=== PATIENT | male | born 1990 | race Caucasian/White ===

== ENCOUNTER 2021-10-24 10:30 | Emergency (ER) | payer OTHER, SELFPAY ==
[2021-10-24 10:42] VITALS: BP 141/83; PULSE 70; RESP 14; TEMP 36.3; O2SAT 95; BMI 36.9
--- NOTE | 2021-10-24 10:47 | DI.RAD.S_ITS ---
PROCEDURE: XR KNEE RT 3V INDICATIONS: knee pain TECHNIQUE: 3 views of the knee were acquired. COMPARISON: None. FINDINGS: Bones: No fractures or dislocations. Slight lateral subluxation of patella is seen. No suspicious bony lesions. Soft tissues: Moderate suprapatellar joint effusion is seen. No suspicious soft tissue calcifications. IMPRESSION: No acute right knee fracture or dislocation. Slight lateral subluxation of patella. Moderate suprapatellar joint effusion. The Dictated by: Dalton Arriaga M.D. on 10/24/2021 at 11:05 Approved by: Dalton Arriaga M.D. on 10/24/2021 at 11:05
--- NOTE | 2021-10-24 12:24 | ED.LOWEXIN ---
HPI - Extremity Injury (Lower) <Donnell Amezcua PA-C - Last Filed: 10/24/21 12:33> General Chief Complaint: Extremity Injury, Lower Stated Complaint: Thinks torn something in knee Time Seen by Provider: 10/24/21 12:03 Source: patient Mode of arrival: Ambulatory History of Present Illness HPI Narrative: Patient is a 30-year-old male who presents to the ED complaining of right knee pain. He states that yesterday evening he was playing basketball and as he came down from a jump shot his knee bent inward he started having severe pain. He states that throughout the night and this morning his head no in improvement in his symptoms and has noticed swelling in his knee has increased. He has strained his knee in the past but no previous fracture and no recent surgery to his knee. The pain that he is describing is located on the medial side of the joint space. Related Data Previous Rx's Medication Instructions Recorded tramadol 50 mg tablet 50 mg PO Q6H PRN #30 tab 10/24/21 Allergies Allergy/AdvReac Type Severity Reaction Status Date / Time No Known Drug Allergies Allergy Verified 10/24/21 10:47 Review of Systems <Donnell Amezcua PA-C - Last Filed: 10/24/21 12:33> Review of Systems ROS Unobtainable: All systems reviewed & are unremarkable except as noted in HPI and below Constitutional Constitutional: Denies chills, Denies fatigue, Denies fever(s), Denies frequent falls, Denies lethargy and Denies weakness Eyes Eyes: Denies change in vision, Denies eye discharge, Denies irritation and Denies loss of vision ENT Ears, Nose, Mouth, and Throat: Denies change in voice, Denies dizziness, Denies neck pain, Denies sore throat and Denies throat swelling Cardiovascular Cardiovascular: Denies chest pain, Denies irregular heart rhythm, Denies lightheadedness, Denies palpitations, Denies dyspnea, Denies dyspnea on exertion and Denies orthopnea Respiratory Respiratory: Denies cough, Denies dyspnea, Denies dyspnea on exertion and Denies wheezing Gastrointestinal Gastrointestinal: Denies abdominal pain, Denies change in bowel habits, Denies diarrhea, Denies nausea and Denies vomiting Genitourinary Genitourinary: Denies hematuria, Denies flank pain, Denies urinary incontinence and Denies urinary urgency Musculoskeletal Musculoskeletal: Denies back pain, Reports arthralgias, Reports joint swelling, Reports limited range of motion, Denies muscle weakness, Denies neck pain, Denies numbness and Denies tingling Integumentary/Breasts Skin/Breast: Denies pruritus, Denies erythema, Denies rash and Denies wounds Neurologic Neurologic: Denies behavioral changes, Denies confusion, Denies dizziness, Denies frequent falls, Denies loss of vision, Denies numbness, Denies tingling and Denies weakness Psychiatric Psychiatric: Denies anxiety, Denies behavioral changes, Denies confusion, Denies depression, Denies homicidal ideation and Denies suicidal ideation Endocrine Endocrine: Denies fatigue, Denies flushing and Denies palpitations Hematologic/Lymphatic Hematologic/Lymphatic: Denies easy bruising Allergic/Immunologic Allergic/Immunologic: Denies urticaria, Denies throat swelling and Denies wheezing Patient History <Donnell Amezcua PA-C - Last Filed: 10/24/21 12:33> Social History Smoking Status: Current every day smoker Smoking Status: Current every day smoker alcohol intake frequency: holidays/special occasions only Substance Use Type: does not use Exam <Donnell Amezcua PA-C - Last Filed: 10/24/21 12:33> Initial Vital Signs Initial Vital Signs: Vital Signs Temperature 97.3 F L 10/24/21 10:42 Pulse Rate 70 10/24/21 10:42 Respiratory Rate 14 10/24/21 10:42 Blood Pressure 141/83 H 10/24/21 10:42 Pulse Oximetry 95 10/24/21 10:42 Const General: cooperative, healthy appearing, comfortable and well developed Nutritional Appearance: average body habitus Orientation: Orientation [facility] Head: normal to inspection and normocephalic Ears: hearing grossly normal bilaterally and external ears normal Nose: external nose normal and nares normal Face and sinus: normal facial exam Mouth: oral mucosae normal Skin General: no rashes or lesions noted Extrem Right lower extremity: knee Details: tenderness Location: of the medial joint line and swelling Location: of the pre-patellar area <Gerber Ramirez MD - Last Filed: 10/31/21 22:22> Initial Vital Signs Initial Vital Signs: Vital Signs Temperature 97.3 F L 10/24/21 10:42 Pulse Rate 70 10/24/21 10:42 Respiratory Rate 14 10/24/21 10:42 Blood Pressure 141/83 H 10/24/21 10:42 Pulse Oximetry 95 10/24/21 10:42 Course <Donnell Amezcua PA-C - Last Filed: 10/24/21 12:33> Orders Ordered: ED Orders 10/24/21 10:47 XR knee RT 3V Stat Vital Signs Vital signs: Vital Signs - 8 hr 10/24/21 10:42 Temperature 97.3 F L Pulse Rate 70 Respiratory Rate 14 Blood Pressure 141/83 H Pulse Oximetry 95 <Gerber Ramirez MD - Last Filed: 10/31/21 22:22> Orders Ordered: ED Orders 10/24/21 10:47 XR knee RT 3V Stat Vital Signs Vital signs: Vital Signs - 8 hr 10/24/21 10:42 Temperature 97.3 F L Pulse Rate 70 Respiratory Rate 14 Blood Pressure 141/83 H Pulse Oximetry 95 MDM - Extremity Injury (Lower) <Donnell Amezcua PA-C - Last Filed: 10/24/21 12:33> Differential Diagnosis Differential diagnosis: Likely acute internal derangement of knee Imaging Data Extremity x-ray #1: Radiologist's Impression: PROCEDURE:? XR KNEE RT 3V ? INDICATIONS:? knee pain ? TECHNIQUE:? 3 views of the knee were acquired.? ? COMPARISON:? None. ? FINDINGS:? ? Bones:? No fractures or dislocations.? Slight lateral subluxation of patella is seen.? No suspicious bony lesions.? ? Soft tissues:? Moderate suprapatellar joint effusion is seen.? No suspicious soft tissue calcifications.? ? ? IMPRESSION:? No acute right knee fracture or dislocation.? Slight lateral subluxation of patella.? Moderate suprapatellar joint effusion.? The ? ? Dictated by: Dalton Arriaga M.D. on 10/24/2021 at 11:05 ? ? Approved by: Dalton Arriaga M.D. on 10/24/2021 at 11:05?? MDM Narrative Medical decision making narrative: Patient was evaluated today for right knee pain. X-ray of the right knee did not show any evidence of any fracture however did comment on moderate amount of supra patellar effusion. A palpable fluid wave was appreciated in his exam he does have limited range of motion he does have medial side tenderness. I think it is feasible he could have injured something within the knee joint specifically. Patient will be placed in a knee immobilizer and weight-bearing as tolerated. Pain medication will be sent over to his pharmacy of record I spoke to patient about if no improvement in the next 5-7 days that he should follow up with academic program specialist for further evaluation to include MRI. He was agreeable patient will be discharged home. Discharge Plan Departure Patient Disposition: Home Clinical Impression: Acute knee pain Instructions: DI for Knee Pain Activity Restrictions/Additional Instructions: You were seen today for your right knee. As we had previously discussed we have ruled out fracture today however we cannot evaluate all the internal structures within the knee. Wear the knee immobilizer as much as possible and utilize the crutches as you need to. If the pain and swelling and improve you can stop wearing the knee immobilizer and utilizing the crutches. If the pain continues and you notice no improvement over the next week then I would recommend you follow-up with academic program specialist for further evaluation. Pain medication was sent over to [facility] here in [facility] for you to scrap picker your leisure. Elevate the right knee and ice 3 times a day to help with pain and swelling. Return to the ED if he have any further concerns or worsening symptoms or you can follow-up with your PCP. Thank you for the opportunity to care for you today. Prescriptions: New tramadol 50 mg tablet 50 mg PO Q6H PRN (Reason: pain) Qty: 30 0RF Stand Alone Forms: Work Release Note <Gerber Ramirez MD - Last Filed: 10/31/21 22:22> [facility] ED [facility] I was immediately available in the department for consultation. This documentation has been reviewed and I agree with assessment and plan. Supervised by Gerber Ramirez MD
[2021-10-24 12:57] VITALS: BP 140/60; PULSE 70; RESP 16; O2SAT 99
== END 2021-10-24 12:50 | disposition home or self-care (01) ==
PROVIDERS: Emergency Provider Physician Assistant
DX: M25.561 Pain in right knee (principal); M25.461 Effusion, right knee
CPT/HCPCS: 73562; 99283

== ENCOUNTER → 2021-12-18 07:37 | Outpatient (CLI) | payer OTHER, SELFPAY ==
--- NOTE | 2021-12-18 | DI.MRI.S_ITS ---
PROCEDURE: MR KNEE RT WO CON INDICATIONS: RIGHT KNEE PAIN TECHNIQUE: Noncontrast sagittal PD fast spin echo and T2 fast spin echo with fat saturation, sagittal 3-D FLASH with fat saturation; coronal T1 spin echo and PD fast spin echo with fat saturation, and axial PD fast spin echo with fat saturation through the knee. COMPARISON: [facility], CR, XR KNEE RT 3V, 10/24/2021, 10:42. FINDINGS: Image quality: Excellent. Menisci: There is mild T2 signal elevation at the posterior meniscal capsular junction of the posterior horn medial meniscus. Vertically oriented high signal intensity traverses the anterior horn, body, and posterior horn medial meniscus involving the middle and peripheral thirds. There is displacement of the bucket-handle fragment laterally into the intercondylar notch. There is amorphous and linear horizontal high signal intensity traversing the anterior horn, body, and posterior horn of the lateral meniscus, involving the peripheral and middle thirds, demonstrating superior articular surface extension, indicating complex tearing. Cruciate ligaments: Full-thickness chronic or subacute appearing tearing of the anterior cruciate ligament is present. Posterior cruciate ligament is intact. Medial structures: The medial collateral ligament appears intact. Small amount of fluid deep to the medial collateral ligament. Visualized portions of the pes anserinus tendons appear normal. No abnormal bursal fluid. Lateral structures: The lateral collateral ligament demonstrates mild T2 signal elevation at the femoral origin. The long and short heads of the biceps femoris tendon appear intact. The popliteus tendon appears normal. Iliotibial band appears normal. Anterior structures: The quadriceps and patellar tendons appear intact. Lateral patellar subluxation is present. Lateral ventral trochlear prominence is present. No edema in the infrapatellar fat pad. Bones and cartilage: There is a chronic or subacute-appearing depressed fracture of the anterior weight-bearing aspect of the lateral femoral condyle spanning roughly 17 mm anteroposterior, and depressed by roughly 4 mm. There is mild ill-defined T2 signal elevation within the medial and lateral tibial plateaus posteriorly. There is a chronic versus subacute appearing depressed fracture of the medial tibial plateau posteriorly which is depressed by roughly 4 mm, spanning roughly 7 mm anteroposterior. Moderate diffuse articular cartilage loss overlies the weight-bearing aspects of the medial femoral condyle and medial tibial plateau. Mild articular cartilage loss diffusely overlies the weight-bearing aspects of the lateral femoral condyle and lateral tibial plateau. Joint space: There is a small knee joint effusion and a trace Llamas's cyst. Normal appearing synovial plicae are incidentally noted. IMPRESSION: 1. Full-thickness chronic or subacute appearing anterior cruciate ligament tear. 2. Chronic versus subacute appearing depressed fracture of the lateral femoral condyle anteriorly. 3. Chronic versus subacute depressed fracture of medial tibial plateau posteriorly. 4. Medial meniscal bucket-handle tear. 5. Complex tearing of the lateral meniscus. 6. Low-grade partial thickness lateral collateral ligament tear. 7. Medial collateral ligament bursitis. 8. Small knee joint effusion and trace Llamas's cyst. 9. Findings which may predispose the patient to lateral patellofemoral friction syndrome as described above. Dictated by: Nando Cuenca M.D. on 12/18/2021 at 9:11 Approved by: Nando Cuenca M.D. on 12/18/2021 at 9:16
== END ==
PROVIDERS: PCP Family Medicine; Referring Provider Family Medicine; Visit Provider Family Medicine
DX: S72.421A Displaced fracture of lateral condyle of right femur, initial encounter for closed fracture (principal); S83.511A Sprain of anterior cruciate ligament of right knee, initial encounter; S83.211A Bucket-handle tear of medial meniscus, current injury, right knee, initial encounter; S83.271A Complex tear of lateral meniscus, current injury, right knee, initial encounter; S83.421A Sprain of lateral collateral ligament of right knee, initial encounter; M70.51 Other bursitis of knee, right knee; M25.461 Effusion, right knee; M25.561 Pain in right knee
CPT/HCPCS: 73721